=== PATIENT | female | born 1975 | race Caucasian/White ===

== ENCOUNTER 2019-08-29 09:15 | Outpatient (CLI) | payer OTHER ==
--- NOTE | 2019-08-29 09:44 | ULT ---
ULTRASOUND ABDOMEN COMPLETE: DATE: 08/29/2019 HISTORY: 44-year-old female with upper abdominal pain, nausea, and vomiting FINDINGS: Gallbladder: Normal wall thickness. No evidence of pericholecystic fluid, gallstones, or sludge. Liver: Diffusely increased echogenicity, consistent with fatty liver. Common duct caliber: 4 mm. Bilateral kidneys: No hydronephrosis. Pancreas: Poorly visualized. Abdominal aorta: No aneurysm Inferior vena cava: Unremarkable where visualized. Spleen: No splenomegaly IMPRESSION: 1) Hepatic steatosis. 2) no other pathology identified. 3) pancreas not visualized.
== END 2019-08-29 09:16 | disposition home or self-care (01) ==
LOC: SCSULT 09:15
PROVIDERS: ATTEND Internal Medicine Gastroenterology
DX: R10.10 Upper abdominal pain, unspecified (principal); R11.2 Nausea with vomiting, unspecified; R63.4 Abnormal weight loss; R19.4 Change in bowel habit; K92.1 Melena; K76.0 Fatty (change of) liver, not elsewhere classified
CPT/HCPCS: 93975

== ENCOUNTER 2019-09-07 12:43 | Outpatient (CLI) | payer OTHER ==
--- NOTE | 2019-09-07 15:50 | CT ---
CT ABDOMEN AND PELVIS WITH IV CONTRAST: 09/07/19 Oral contrast was administered. INDICATIONS: Left lower quadrant pain. FINDINGS: The lungs bases are clear. Liver, spleen, pancreas unremarkable. Adrenal glands normal. Kidneys unremarkable. Small bowel loops normal caliber. Appendix not identified. Review of the colon reveals diverticulosis of the left colon and sigmoid. No CT evidence of diverticu litis identified. Aorta normal caliber. No mass or adenopathy. Images through the pelvis show evidence of hysterectomy. Osseous structures unremarkable. IMPRESSION: No acute process identified. POS: [facility]
== END 2019-09-07 12:44 | disposition home or self-care (01) ==
LOC: SCSCT 12:43
PROVIDERS: ATTEND Internal Medicine Gastroenterology
DX: R10.9 Unspecified abdominal pain (principal); K57.30 Diverticulosis of large intestine without perforation or abscess without bleeding
CPT/HCPCS: 74177